=== PATIENT | male | born 1965 | race African-American/Black ===

== ENCOUNTER 2019-08-02 10:56 | Emergency (ER) | payer SELFPAY ==
--- NOTE | 2019-08-02 11:22 | ER Document Report ---
ED Eye Complaint - General Chief Complaint: Eye Pain Stated Complaint: EYE PAIN Time Seen by Provider: 08/02/19 11:19 Primary Care Provider: LILLIAN GILLETTE [Primary Care Provider] - Follow up as needed Mode of Arrival: Ambulatory Information source: Patient Notes: 53-year-old male presented to ED for complaint of pain in right eye. He states he has glaucoma in both eyes more pain in the right eye. He states both eyes are cloudy. 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 He states he lives in [place] just moved down here to take care of her's mother a week ago. He has an eye doctor in [place] but not here. Patient is alert oriented respirations regular nonlabored speaking in full sentences walks with even steady gait. I have greeted and performed a rapid initial assessment of this patient. A comprehensive ED assessment and evaluation of the patient, analysis of test results and completion of medical decision making process will be conducted by an additional ED providers. - Related Data Allergies/Adverse Reactions: No Known Allergies Allergy (Verified 08/02/19 11:19) Physical Exam - Vital signs Vitals: Temp Pulse Resp BP Pulse Ox 98.0 F 66 18 132/79 H 98 08/02/19 11:05 08/02/19 11:05 08/02/19 11:05 08/02/19 11:05 08/02/19 11:05 Course - Vital Signs Vital signs: Temp Pulse Resp BP Pulse Ox 98.0 F 66 18 132/79 H 98 08/02/19 11:05 08/02/19 11:05 08/02/19 11:05 08/02/19 11:05 08/02/19 11:05 Discharge - Discharge Referrals: LILLIAN GILLETTE [Primary Care Provider] - Follow up as needed
--- NOTE | 2019-08-02 11:22 | ER Document Report ---
ED Medical Screen (RME) - General Chief Complaint: Eye Pain Stated Complaint: EYE PAIN Time Seen by Provider: 08/02/19 11:19 Primary Care Provider: LILLIAN GILLETTE [Primary Care Provider] - Follow up as needed Mode of Arrival: Ambulatory Notes: 53-year-old male presented to ED for complaint of pain in right eye. He states he has glaucoma in both eyes more pain in the right eye. He states both eyes are cloudy. 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 He states he lives in [place] just moved down here to take care of her's mother a week ago. He has an eye doctor in [place] but not here. Patient is alert oriented respirations regular nonlabored speaking in full sentences walks with even steady gait. I have greeted and performed a rapid initial assessment of this patient. A comprehensive ED assessment and evaluation of the patient, analysis of test results and completion of medical decision making process will be conducted by an additional ED providers. - Related Data Allergies/Adverse Reactions: No Known Allergies Allergy (Verified 08/02/19 11:19) Physical Exam - Vital signs Vitals: Temp Pulse Resp BP Pulse Ox 98.0 F 66 18 132/79 H 98 08/02/19 11:05 08/02/19 11:05 08/02/19 11:05 08/02/19 11:05 08/02/19 11:05 Course - Vital Signs Vital signs: Temp Pulse Resp BP Pulse Ox 98.0 F 66 18 132/79 H 98 08/02/19 11:05 08/02/19 11:05 08/02/19 11:05 08/02/19 11:05 08/02/19 11:05 Doctor's Discharge - Discharge Referrals: LILLIAN GILLETTE [Primary Care Provider] - Follow up as needed
[2019-08-02] MEDS ORDERED: LATANOPROST 0.005% OPH SOLN 2.5 ML OU ONE (13:56)
[2019-08-02] MEDS ORDERED: DORZOLAMIDE HCL 2% OPH SOLN 10 ML OU ONE (14:00)
[2019-08-02] MEDS ORDERED: BRIMONIDINE TARTRATE 0.2% OPH SOLN 5 ML OU SCH (14:00)
[2019-08-02] MEDS ORDERED: TETRACAINE HCL 0.5% OPH SOLN 4 ML ONE (15:00)
[2019-08-02] MEDS ORDERED: TETRACAINE HCL 0.5% OPH SOLN 4 ML OD ONE (15:03)
[2019-08-02 15:28] VITALS: BP 151/90
--- NOTE | 2019-08-02 15:33 | ER Document Report ---
ED Eye Complaint - General Chief Complaint: Eye Pain Stated Complaint: EYE PAIN Time Seen by Provider: 08/02/19 11:19 Primary Care Provider: DAKOTA DODD MD [ACTIVE STAFF] - Follow up as needed LILLIAN GILLETTE [NO LOCAL MD] - Follow up as needed Mode of Arrival: Ambulatory Notes: 53-year-old man presents to the emergency department with a history of glaucoma and has run out of his medications. States that he is blind in his right and apparently run out of his drops 1 day ago. He is come to the area to help take care of his mother and has not established himself with an fibreglass gun hand at this point. TRAVEL OUTSIDE OF THE [place] IN LAST 30 DAYS: No - Related Data Allergies/Adverse Reactions: No Known Allergies Allergy (Verified 08/02/19 11:19) Home Medications: brimonidine tartrate eye drops. travatan eye drops Past Medical History - Social History Smoking Status: Never Smoker Chew tobacco use (# tins/day): No Frequency of alcohol use: None Drug Abuse: None Family History: Reviewed & Not Pertinent Patient has suicidal ideation: No Patient has homicidal ideation: No Review of Systems - Review of Systems Notes: Constitutional: Negative for fever. HENT: Negative for sore throat. Eyes: Eye pain and blurred vision. Cardiovascular: Negative for chest pain. Respiratory: Negative for shortness of breath. Gastrointestinal: Negative for abdominal pain, vomiting or diarrhea. Genitourinary: Negative for dysuria. Musculoskeletal: Negative for back pain. Skin: Negative for rash. Neurological: Negative for headaches, weakness or numbness. 10 point ROS negative except as marked above and in HPI. Physical Exam - Vital signs Vitals: Temp Pulse Resp BP Pulse Ox 98.0 F 66 18 132/79 H 98 08/02/19 11:05 08/02/19 11:05 08/02/19 11:05 08/02/19 11:05 08/02/19 11:05 - Notes Notes: PHYSICAL EXAMINATION: Physical Exam: General: Well-nourished well-developed in no acute distress HEENT: NC/AT, right with dullness pupil and poor reactivity to light, left eye clear and reactive to light, MM moist,nares clear, oropharynx clear Neck: supple, no adenopathy, no masses. Lungs: clear, no wheezing, no rales no rhonchi CVS: Regular, rate, and rhythm no murmur gallop or rub Abdomen: Soft, active nontender, no masses, no hepatosplenomegaly Ext: No edema clubbing or cyanosis. Neuro: Alert and responsive, moving all 4 extremities on command, cranial nerves intact. Skin: Intact no open lesions, no rash PSYCH: Normal mood, normal affect. Course - Re-evaluation Re-evalutation: 08/02/19 15:34 Austyn-Pen measured pressures both eyes, right eye 23, left eye 19. Medications were ordered as noted and doses of dorzolamide and brimonidine were given in the emergency department. Orders dorzolamide, brimonidine, and latanoprost, the patient will use the dorzolamide and brimonidine twice daily and the latanoprost each eye at bedtime. I have encouraged him to follow-up with an fibreglass gun hand and given him the name of a local fibreglass gun hand to call and make an appointment on Sunday. 08/03/19 15:38 - Vital Signs Vital signs: Temp Pulse Resp BP Pulse Ox 97.9 F 55 L 16 151/90 H 100 08/02/19 15:25 08/02/19 15:25 08/02/19 15:25 08/02/19 15:25 08/02/19 15:25 Discharge - Discharge Clinical Impression: Glaucoma (increased eye pressure) Qualifiers: Glaucoma type: open-angle Open angle glaucoma type: unspecified type Laterality: bilateral Glaucoma stage: indeterminate stage Qualified Code(s): H40.10X4 - Unspecified open-angle glaucoma, indeterminate stage Condition: Good Disposition: HOME, SELF-CARE Additional Instructions: You were given medications for your glaucoma in the emergency department today. Please follow-up with an fibreglass gun hand for monitoring the pressures in your and also adjustment of medications as needed. The physician's name below is a fibreglass gun hand and you might call and arrange an appointment. If you run into further difficulties or problems you can return to the emergency department. Referrals: LETA,LILLIAN [NO LOCAL MD] - Follow up as needed DAKOTA DODD MD [ACTIVE STAFF] - Follow up as needed
== END 2019-08-02 15:36 | disposition home or self-care (01) ==
LOC: ER 10:56
DX: H40.10X4 Unspecified open-angle glaucoma, indeterminate stage (principal); H54.61 Unqualified visual loss, right eye, normal vision left eye
CPT/HCPCS: 99283; J3490 ×4